=== PATIENT | male | born 2000 | race Caucasian/White ===

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

== ENCOUNTER 2022-01-13 20:16 | Emergency (ER) | payer OTHER, SELFPAY ==
[2022-01-13 20:16] VITALS: BP 136/75; PULSE 76; RESP 16; TEMP 36.6; O2SAT 100; BMI 22.4
--- NOTE | 2022-01-13 20:53 | EX.ED.UPPERE ---
HPI History of Present Illness HPI Narrative: Patient presents with left wrist pain and swelling that has gotten worse over the past 4 days. Patient states he fell 4 days ago and had a fracture of his distal radius. Patient was seen at [facility] at that time. Patient had his fracture reduced and placed in an AP splint. Patient states that over the last couple days he has noted some increase in the swelling. Patient also admits to some burning sensation in his hand. Patient admits to some tingling. Patient denies any weakness. Patient denies any new injury. Chief Complaint: Upper Extremity Injury Informant: patient Occured/Mechanism Mechanism/Context: Yes fall Onset/Context/Timing Onset: Days (4) Context: Sudden Onset Timing: Continuous Quality of Pain: Burning Location: Left wrist and hand Worsened by: Nothing Relieved by: Ice Associated Symptoms Associated Symptoms: Positive for Parasthesia; Negative for Weakness or Loss of Funtion PFSH PFSH Medical History no medical history no medical history Home Medications albuterol sulfate 90 mcg/actuation aerosol inhaler 2 puff inhalation Q4H PRN PRN Wheezing ##1 11/24/18 [Rx Last Taken Unknown] cyclobenzaprine 10 mg tablet 10 mg PO TID PRN Muscle Spasm #20 tabs 06/06/19 [Rx Last Taken Unknown] naproxen 500 mg tablet 500 mg PO BID PRN #20 tabs 06/06/19 [Rx Last Taken Unknown] Allergy/AdvReac Type Severity Reaction Status Date / Time No Known Allergies Allergy Verified 01/13/22 20:18 Surgical History no surgical history no surgical history Social History Smoking Status: Never smoker ROS ROS ED Constitutional Constitutional ED: Denies chills or fever(s) Eyes Eyes: Denies blurry vision or change in vision ENT ENT ED: Denies rhinorrhea or sore throat Cardiovascular Cardiovascular: Denies chest pain or palpitations Respiratory/Chest Respiratory/Chest: Denies cough or dyspnea Gastrointestinal Gastrointestinal: Denies nausea or vomiting Genitourinary Genitourinary ED: Denies dysuria or hematuria Musculoskeletal Musculoskeletal: Denies back pain or neck pain Integumentary Denies abscess or rash Neurologic Neurologic: Reports paresthesias LUE; Denies headache(s) or weakness Allergic/Immunologic Allergic/Immunologic ED: Denies mouth swelling or urticaria EXAM Physical Exam Const Vital Signs: 01/13/22 20:16 Temperature 97.8 F Temperature Source Temporal Pulse Rate 76 Respiratory Rate 16 Blood Pressure 136/75 H Blood Pressure Mean 95 Pulse Ox 100 Oxygen Delivery Method Room Air Positive well nourished and well developed General Appearance ED: well developed and NAD HEENT Reports moist mucous membranes Neck full ROM Extremity Extremity Narrative: There is edema and tenderness over the left distal radius. There is edema of the left hand. There is no obvious deformity. There is a short arm AP splint in place. Sensation was intact to light touch in the radial, median, and ulnar areas. Strength is 5/5 in the radial, median, and ulnar areas. Capillary refill is less than 2 seconds in all digits. Neuro oriented x3, CN's II-XII intact bilaterally, moves all extremities, no focal motor deficits and no sensory deficits noted Sensorium / Orientation: alert Motor Exam: strength 5/5 throughout Psych mental status grossly normal MDM MDM MDM Narrative Medical decision making narrative: The Medardo wrap was removed. The gauze wrap was removed. The splint was left in place. A new Medardo wrap was applied to the left upper extremity. Patient states his symptoms have improved with this. Patient no longer has any burning or tingling. Patient was instructed to ice and elevate the left wrist. Patient was instructed to follow-up with Dr. Owens in 3 to 5 days. Patient was instructed to call tomorrow to schedule an appointment. Patient understood and was agreeable with the plan. All questions were answered. Discharge Plan Triage Chief Complaint: Upper Extremity Injury ED Provider: Gwyn Ortiz Dx/Rx/DC Orders Clinical Impression: Closed fracture of left distal radius, Paresthesias in left hand Instructions: ED Fracture, Wrist, General, ED Paraesthesias Prescriptions: No Action albuterol sulfate 1 INHALER inhaler 2 puff inhalation Q4H PRN PRN (Reason: Wheezing) Qty: 1 0RF cyclobenzaprine 10 MG tablet 10 mg PO TID PRN (Reason: Muscle Spasm) Qty: 20 0RF naproxen 500 MG tablet 500 mg PO BID PRN Qty: 20 0RF Primary Care Provider: NOT,DEFINED Referrals: Heath Owens MD [Med Staff - Active Staff] - 3-5 Days (Call tomorrow for an appointment) NOT,DEFINED [Primary Care Provider] - Disposition Disposition: Home, Self Care
[2022-01-13 20:55] VITALS: BP 120/68; PULSE 78; RESP 18; O2SAT 99
[2022-01-13 21:12] VITALS: PULSE 76; RESP 18; O2SAT 100
== END 2022-01-13 21:12 | disposition home or self-care (01) ==
LOC: ED 21:07
PROVIDERS: Emergency Provider Emergency Medicine; Visit Provider Emergency Medicine
DX: S52.502A Unspecified fracture of the lower end of left radius, initial encounter for closed fracture (principal); W19.XXXA Unspecified fall, initial encounter; R20.2 Paresthesia of skin
CPT/HCPCS: 99282

== ENCOUNTER 2024-05-08 22:03 | Emergency (ER) | payer MEDICAID, SELFPAY ==
[2024-05-08 22:04] VITALS: BP 120/52; PULSE 67; RESP 18; TEMP 36.5; O2SAT 99; BMI 22.1
--- NOTE | 2024-05-08 22:08 | EDS_ITS ---
HPI History of Present Illness Chief Complaint: Wound Check [facility] Home Medications ?Medication ?Instructions ?Recorded ?Last Taken ?Type albuterol sulfate 90 mcg/actuation 2 puff inhalation Q 4H PRN PRN 11/24/18 Unknown Rx aerosol inhaler Wheezing ##1 cyclobenzaprine 10 mg tablet 10 mg PO TID PRN Muscle S pasm #20 06/06/19 Unknown Rx tabs naproxen 500 mg tablet 500 mg PO BID PRN #20 tabs 0 06/06/19 Unknown Rx sulfamethoxazole 800 1 tab PO BID 7 days #14 tabs 05/08/24 Unknown Rx mg-trimethoprim 160 mg tablet (Bactrim DS) Allergy/AdvReac Type Severity Reaction Status Date / Time No Known Allergies Allergy Verified 05/08/24 22:04 Social History (Updated 05/08/24 @ 22:56 by Xuan Rosales) household members: significant other housing: house Smoking Status: Never smoker EXAM Physical Exam Const Vital Signs: 05/08/24 22:04 Temperature 97.7 F L Temperature Source Temporal Pulse Rate 67 Respiratory Rate 18 Blood Pressure 120/52 L Blood Pressure Mean 74 Pulse Ox 99 Oxygen Delivery Method Room Air [facility] [place] Narrative Medical decision making narrative: HISTORY OF PRESENT ILLNESS: 23-year-old male presents with concern for cyst on his back. He states has been there for 5 months. He notes he has been able to get it to drain in the past. But he states with past few days he got very vague and very painful REVIEW OF SYSTEMS: Pertinent positives: Cyst Pertinent negatives: Fever, vomiting PHYSICAL EXAM: Nursing triage notes reviewed, Vital signs reviewed Constitutional: please see mdm Skin: Approximate 3 x 3 area of redness noted to the back, there is approximately 2 x 2 area of fluctuance induration noted as well. No crepitus or bullae MEDICAL DECISION MAKING: Chief Complaint: Wound check External records reviewed: Reviewed prior notes, allergies and problem list Factors affecting care: Asthma, no reported diabetes Social determinants of health: none History obtained from others: none Consults: none [facility] Narrative: Patient was initially hemodynamically stable, afebrile and nontoxic-appearing. Exam with sign of abscess. Bedside ultrasound showed no evidence of vascularity. Incision and drainage went well. Please remove procedure note. Strict return precaution were discussed. Bactrim prescribed for anti-MRSA effect. Incision and drainage was performed. Please see below procedure note Procedure: Incision and Drainage simple abscess The procedure was performed by myself. Location: Back Risks and benefits: Risks, benefits, and alternatives were discussed. Questions were sought and answered, and verbal consent provided for the procedure. Anesthesia: 1% lidocaine without epinephrine Procedure Description: Placed a wheal of lidocaine, please 11 blade, used suction to remove approximately 3 cc of purulent material. Wound was left open. Antibiotic ointment applied. Wound was not packed. The patient tolerated the procedure well without complications. The patient and/or family, caregivers express understanding. The patient and/or family, caregivers agrees with the plan. Shared decision making: I will have a discussion with the patient and or visitors regarding risk/benefits of further testing or admission. They will be made aware of of the risk/benefits inherent in this decision they will be given the opportunity to voice understanding. Total critical care time today provided was at least 0 minutes. This excludes separately billable procedures. Critical care time (if documented) is secondary to the patient having high probability of clinically significant/life threatening deterioration in the patient's condition which required my urgent intervention. Impression: 1. Abscess 2. Cellulitis Dispo: Discharge home This note was generated with [employer] dictation software. It may contain incorrect words, spelling, and punctuation that were not noted in review of the chart prior to signing. Discharge Plan Triage Chief Complaint: Wound Check ED Provider: Rambo Triplett Dx/Rx/DC Orders Clinical Impression: Abscess Instructions: Abscess Drainage, Cellulitis Dc Prescriptions: New sulfamethoxazole-trimethoprim [Bactrim DS] 800-160 mg tablet 1 tab PO BID 7 Days Qty: 14 0RF No Action albuterol sulfate 1 INHALER inhaler 2 puff inhalation Q4H PRN PRN (Reason: Wheezing) Qty: 1 0RF cyclobenzaprine 10 MG tablet 10 mg PO TID PRN (Reason: Muscle Spasm) Qty: 20 0RF naproxen 500 MG tablet 500 mg PO BID PRN Qty: 20 0RF Primary Care Provider: Care Physician,No Primary Referrals: Lg Aguilar MD [Med Staff - [employer]] - Activity Restrictions/Additional Instructions: Thank you for trusting us with your care today! Please take Tylenol (2 pills, 650 mg), ibuprofen (2 pills, 400 mg) every 6 hours as needed for pain and fever control. Please take antibiotics until course complete Please use warm compresses Please return to the emergency department if your symptoms change or worsen. Specific if you start feeling more ill, fevers, vomiting, or if you lose consciousness Please follow with your primary care physician for further outpatient evaluation and management. Print Language: Bengali Disposition Disposition: Home, Self Care
[2024-05-08] MEDS: Lidocaine 1% (20 ml mdv) 20 ML Vial 5 ML INFILT (22:28)
[2024-05-08] MEDS: Smz/Tmp Ds Tablet 1 TABLET PO (22:28)
== END 2024-05-08 23:28 | disposition home or self-care (01) ==
LOC: ED 23:25
PROVIDERS: Emergency Provider Emergency Medicine; Visit Provider Emergency Medicine
DX: L02.212 Cutaneous abscess of back [any part, except buttock and flank] (principal); L03.312 Cellulitis of back [any part except buttock and flank]
CPT/HCPCS: 10060; 99282